=== PATIENT | male | born 1975 | race Caucasian/White ===

== ENCOUNTER 2016-12-13 20:47 | Emergency (ER) | payer SELFPAY ==
[2016-12-13 20:50] VITALS: BP 182/116; PULSE 92; RESP 16; TEMP 98.8; O2SAT 98
[2016-12-14] MEDS ORDERED: HYDR-3533 PO (13:31)
[2016-12-14] MEDS ORDERED: CLIN1CAP6 PO (13:31)
[2016-12-14] MEDS ORDERED: IBUP-1129 PO (13:31)
== END 2016-12-13 23:15 | disposition left against medical advice (07) ==
LOC: NED 20:47
DX: K08.89 Other specified disorders of teeth and supporting structures (principal); Z53.21 Procedure and treatment not carried out due to patient leaving prior to being seen by health care provider
CPT/HCPCS: 99281

== ENCOUNTER 2016-12-14 09:18 | Emergency (ER) | payer MEDICAID, OTHER ==
[~2016-12-14] VITALS: Ht 170.2 cm; Wt 78.0 kg
[2016-12-14 09:19] VITALS: BP 180/119; PULSE 112; RESP 24; TEMP 97.8; O2SAT 96
[2016-12-14] MEDS ORDERED: SODIUM CHLOR 0.9% 1000 ML INJ 1,000 ML IV ONE (09:43)
[2016-12-14] MEDS ORDERED: CLINDAMYCIN INJ 900 MG in SODIUM CHLORIDE 0.9% INJ 100 ML IV STA (09:43)
[2016-12-14] MEDS ORDERED: HYDROmorphone HCL PF 1 MG/ML VIAL IV ONE (09:45)
[2016-12-14] MEDS ORDERED: ONDANSETRON HCL 4 MG/2 ML VIAL IV ONE (09:45)
--- NOTE | 2016-12-14 09:49 | PD ---
HPI Chief Complaint: Oral / Dental Pain or Problem Time Seen by Provider: 09:43 Travel History International Travel<30 days: No Contact w/Intl Traveler<30days: No Traveled to known affect area: No History of Present Illness HPI 41-year-old male with history of poor dentition with dental caries in the right mandibular area, presents to the ER today because he has had a week history of dental pain in the right mandibular molar area and last night woke up with increased swelling in the right face going down into the right throat area. He states it feels like he is having a difficult time swallowing. He denies any fevers or any other issues. Modifying Factors: None Associated Signs & Symptoms: Dental issues, right facial swelling, difficulty swallowing Risk Factors: None PFSH Social History Alcohol Use: Yes (OCC) Tobacco Use: Yes (1/2 PACK) Substance Use: No Allergies-Medications (Allergen,Severity, Reaction): Coded Allergies: Keflex (Verified Allergy, Unknown, 12/14/16) Penicillin (Verified Allergy, Unknown, 12/14/16) Review of Systems Except as stated in HPI: all other systems reviewed are Neg Physical Exam Narrative GENERAL: Well-developed middle age white male patient currently in mild distress. Awake and oriented 3. SKIN: Focused skin assessment warm/dry. HEAD: Atraumatic. Normocephalic. There is notable right facial edema going down in the right mandibular area and the right submandibular area, mildly tender to palpation, no palpable fluctuance. EYES: Pupils equal and round. No scleral icterus. No injection or drainage. ENT: Mucosa pink and moist. No erythema or exudates. No uvular edema. No uvular , palatal, or tonsillar deviation. Airway patent. NECK: Trachea midline. No JVD. Right submandibular area notable for edema but no underlying fluctuance palpable. Mildly tender to palpation. CARDIOVASCULAR: Regular rate and rhythm. No murmur appreciated. RESPIRATORY: No accessory muscle use. Clear to auscultation. Breath sounds equal bilaterally. GASTROINTESTINAL: Abdomen soft, non-tender, nondistended. Hepatic and splenic margins not palpable. MUSCULOSKELETAL: No obvious deformities. No clubbing. No cyanosis. No edema. NEUROLOGICAL: Awake and alert. No obvious cranial nerve deficits. Motor grossly within normal limits. Normal speech. PSYCHIATRIC: Appropriate mood and affect; insight and judgment normal. Data Data Last Documented VS Vital Signs Date Time Temp Pulse Resp B/P Pulse Ox O2 Delivery O2 Flow Rate FiO2 12/14/16 12:33 79 205/120 12/14/16 11:00 21 96 Room Air 12/14/16 09:19 97.8 Orders Complete Blood Count With Diff (12/14/16 09:43) Comprehensive Metabolic Panel (12/14/16 09:43) Lactic Acid Sepsis Protocol (12/14/16 09:43) Blood Culture (12/14/16 09:43) Blood Glucose (12/14/16 09:43) Ecg Monitoring (12/14/16 09:43) Iv Access Insert/Monitor (12/14/16 09:43) Oximetry (12/14/16 09:43) Oxygen Administration (12/14/16 09:43) Hydromorphone Pf Inj (Dilaudid Pf Inj) (12/14/16 09:45) Ondansetron Inj (Zofran Inj) (12/14/16 09:45) Clindamycin Inj (Cleocin Inj) (12/14/16 09:43) Sodium Chlor 0.9% 1000 Ml Inj (Ns 1000 M (12/14/16 09:43) Ct Facial Bones W Iv Contrast (12/14/16 ) Iohexol 350 Inj (Omnipaque 350 Inj) (12/14/16 11:58) Hydromorphone Pf Inj (Dilaudid Pf Inj) (12/14/16 12:30) Labs Laboratory Tests Test 12/14/16 12/14/16 09:59 10:00 White Blood Count 12.0 TH/MM3 Red Blood Count 5.44 MIL/MM3 Hemoglobin 18.5 GM/DL Hematocrit 52.1 % Mean Corpuscular Volume 95.8 FL Mean Corpuscular Hemoglobin 33.9 PG Mean Corpuscular Hemoglobin 35.4 % Concent Red Cell Distribution Width 12.3 % Platelet Count 209 TH/MM3 Mean Platelet Volume 8.1 FL Neutrophils (%) (Auto) 77.8 % Lymphocytes (%) (Auto) 11.8 % Monocytes (%) (Auto) 8.2 % Eosinophils (%) (Auto) 1.4 % Basophils (%) (Auto) 0.8 % Neutrophils # (Auto) 9.4 TH/MM3 Lymphocytes # (Auto) 1.4 TH/MM3 Monocytes # (Auto) 1.0 TH/MM3 Eosinophils # (Auto) 0.2 TH/MM3 Basophils # (Auto) 0.1 TH/MM3 CBC Comment DIFF FINAL Differential Comment Sodium Level 137 MEQ/L Potassium Level 3.9 MEQ/L Chloride Level 103 MEQ/L Carbon Dioxide Level 26.7 MEQ/L Anion Gap 7 MEQ/L Blood Urea Nitrogen 6 MG/DL Creatinine 0.97 MG/DL Estimat Glomerular Filtration 86 ML/MIN Rate Random Glucose 113 MG/DL Calcium Level 9.1 MG/DL Total Bilirubin 1.0 MG/DL Aspartate Amino Transf 24 U/L (AST/SGOT) Alanine Aminotransferase 67 U/L (ALT/SGPT) Alkaline Phosphatase 107 U/L Total Protein 7.8 GM/DL Albumin 4.3 GM/DL Lactic Acid Level 1.6 mmol/L [facility] Medical Decision Making Medical Screen Exam Complete: Yes Emergency Medical Condition: Yes Medical Record Reviewed: Yes Interpretation(s) Laboratory Tests Test 12/14/16 09:59 White Blood Count 12.0 TH/MM3 (4.0-11.0) Hemoglobin 18.5 GM/DL (13.0-17.0) Hematocrit 52.1 % (39.0-51.0) Neutrophils (%) (Auto) 77.8 % (16.0-70.0) Monocytes (%) (Auto) 8.2 % (0.0-8.0) Neutrophils # (Auto) 9.4 TH/MM3 (1.8-7.7) Monocytes # (Auto) 1.0 TH/MM3 (0-0.9) Blood Urea Nitrogen 6 MG/DL (7-18) Estimat Glomerular Filtration 86 ML/MIN (>89) Rate Random Glucose 113 MG/DL (74-106) Differential Diagnosis Dental infection versus facial cellulitis versus dental abscess versus submandibular abscess Narrative Course Lab work shows elevation of white blood cell counts and CAT scan shows cellulitis with no signs of abscess or other acute processes. Patient had been given clindamycin in the ER after blood cultures have been done. Patient's blood pressures are fairly elevated in the ER and he has required several doses of pain medications for pain. I suspect that the blood pressure elevation may be secondary to pain. Patient has no history of hypertension. He is able to control secretions, able to drink in the ER without issues. At this point, I have talked to the patient regarding findings and considering the cellulitis, have offered to admit the patient for further treatment of pain, cellulitis, and for further review blood pressure. At this point, he is declining to stay stating that he has 2 young babies at home that he needs to go back to. I talked him about the fact that the cellulitis can progress and that symptoms can worsen. In addition, I stressed the fact that he is having fairly elevated blood pressure of uncertain etiology and that he will need further evaluation. He states understanding, and is declining to stay at this point. He will be leaving against my advice. AMA: The risks of leaving against medical advice without further evaluation treatment were discussed with the patient. These risks include cardiac dysfunction, cardiac dysrhythmia, possible heart attack, possible stroke or . The patient indicated understanding of these risks and appeared to have the capacity to make this decision. Diagnosis Primary Impression: Dentoalveolar cellulitis Additional Impression: High blood pressure Med/Other Pt SpecificInfo: Prescription(s) given Scripts Ibuprofen (Motrin Ib)200 Mg [id number] Mg PO QID PRN (PAIN SCALE 1 TO 10) #21 Prov:Krunal Chand MD 12/14/16 Clindamycin 300 Mg Mtp125 Mg PO TID #21 CAP Ref 0 Prov:Krunal Chnad MD 12/14/16 Hydrocodone-Acetaminophen (Lortab)5-325 Mg Tab1-2 Tab PO Q6H PRN (PAIN) #15 TAB Ref 0 Prov:Krunal Chand MD 12/14/16 Disposition: 07 AGAINST MEDICAL ADVICE Condition: Stable Krunal Chand MD Dec 14, 2016 09:49
[2016-12-14 09:53] VITALS: O2SAT 98
[2016-12-14 10:34] LABS: AUTOMATED NEUTROPHIL # 9.4 TH/MM3 (1.8-7.7); BASOPHIL # 0.1 TH/MM3 (0-0.2); BASOPHIL % 0.8 % (0.0-2.0); EOSINOPHIL # 0.2 TH/MM3 (0-0.4); EOSINOPHIL % 1.4 % (0.0-4.0); HEMATOCRIT 52.1 % (39.0-51.0); HEMO FLAGS DIFF FINAL; LYMPH % 11.8 % (9.0-44.0); LYMPHOCYTE # 1.4 TH/MM3 (1.0-4.8); MEAN CELL VOLUME 95.8 FL (80.0-100.0); MEAN CORPUSCULAR HEMOGLOBIN 33.9 PG (27.0-34.0); MEAN CORPUSCULAR HGB CONC 35.4 % (32.0-36.0); MONO % 8.2 % (0.0-8.0); NEUT % 77.8 % (16.0-70.0); PLATELET COUNT 209 TH/MM3 (150-450); RED BLOOD COUNT 5.44 MIL/MM3 (4.50-5.90); RED CELL DISTRIBUTION WIDTH 12.3 % (11.6-17.2)
[2016-12-14 10:40] LABS: ANION GAP 7 MEQ/L (5-15); AST (GOT) 24 U/L (15-37); BICARBONATE 26.7 MEQ/L (21.0-32.0); BLOOD UREA NITROGEN 6 MG/DL (7-18); CHLORIDE 103 MEQ/L (98-107); GLOMERULAR FILTRATION RATE 86 ML/MIN (>89); POTASSIUM 3.9 MEQ/L (3.5-5.1); SODIUM (NA) 137 MEQ/L (136-145)
[2016-12-14 10:41] LABS: ALT (GPT) 67 U/L (12-78)
[2016-12-14 10:43] LABS: ALKALINE PHOSPHATASE 107 U/L (45-117)
[2016-12-14 11:00] VITALS: BP 190/116; PULSE 72; RESP 21; O2SAT 96
[2016-12-14] MEDS ORDERED: IOHEXOL 350 MG/ML 10 ML VIAL (for RAD DIAG) IV ONE (11:58)
--- NOTE | 2016-12-14 12:26 | RADRPT ---
EXAM DATE/TIME: 12/14/2016 11:54 [facility] COMPARISON: No previous studies available for comparison. INDICATIONS : Right lower tooth pain with facial swelling and difficulty swallowing IV CONTRAST: 74 cc Omnipaque 350 (iohexol) IV RADIATION DOSE: 42.18 CTDIvol (mGy) MEDICAL HISTORY : None SURGICAL HISTORY : None. ENCOUNTER: Initial ACUITY: 1 week PAIN SCALE: 7/10 LOCATION: Right facial TECHNIQUE: Volumetric scanning of the facial bones was performed. Using automated exposure control and adjustme nt of the mA and/or kV according to patient size, radiation dose was kept as low as reasonably achiev able to obtain optimal diagnostic quality images. DICOM format image data is available electronicall y for review and comparison. FINDINGS: There is soft tissue swelling anterior to the right mandibular body as well as subcutaneous swelling of the right cheek. There appears to be focal cavities involving at least two right posterior molars with erosive changes and air/fluid in the areas of erosion. Dental consultation is suggested. No e rosive changes are noted involving the right mandible. No soft tissue mass or lymphadenopathy is noted within the neck. Mucus retention cyst is noted withi n the right maxillary sinus. CONCLUSION: 1. Soft tissue swelling anterior to the right mandible as well as cellulitis of the right cheek. Er osive changes/cavities are noted involving at least two right posterior molars. Dental evaluation is suggested. 2. Small mucus retention cyst within the right maxillary sinus. Dl Alcantara MD on December 14, 2016 at 12:05 Board Certified Radiologist. This report was verified electronically.
[2016-12-14] MEDS ORDERED: HYDROmorphone HCL PF 1 MG/ML VIAL IV PUSH ONE (12:30)
[2016-12-14 12:33] VITALS: BP 205/120; PULSE 79
[2016-12-14 13:28] VITALS: BP 190/115; PULSE 82
[2016-12-14] MEDS ORDERED: CLIN1CAP6 PO (13:31)
[2016-12-14] MEDS ORDERED: IBUP-1129 PO (13:31)
[2016-12-14] MEDS ORDERED: HYDR-3533 PO (13:31)
== END 2016-12-14 14:01 | disposition left against medical advice (07) ==
LOC: NEPE 09:18
DX: K02.9 Dental caries, unspecified (principal); R22.0 Localized swelling, mass and lump, head; R03.0 Elevated blood-pressure reading, without diagnosis of hypertension; F17.210 Nicotine dependence, cigarettes, uncomplicated; Z88.0 Allergy status to penicillin; Z88.1 Allergy status to other antibiotic agents
CPT/HCPCS: 70487; 80053; 83605; 85025; 87040; 96365; 96375; 99285; J1170; J2405; J7030; Q9967